=== PATIENT | male | born 1960 | race Caucasian/White ===

== ENCOUNTER → 2016-10-17 | Outpatient (CLI) | payer BC | END | disposition home or self-care (01) | LOC: RAD.S 17:00 | DX: M79.89 Other specified soft tissue disorders (principal); I82.491 Acute embolism and thrombosis of other specified deep vein of right lower extremity ==

== ENCOUNTER 2016-11-09 21:57 | Emergency (ER) | payer BC ==
--- NOTE | 2016-11-19 08:39 | ER ---
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 See T-sheet for history and physical. Wound was thoroughly cleaned and stapled with #5 mayra and subsequently discharged. Instructed to remove the staple in approximately 10 days. He was also given Keflex prophylactically at the stockyard when this happened. DIAGNOSIS: Laceration repair. Walter Burgess MD/ anthony JOB #: [id number] CC: Dave Fraga MD, Attending Physician Severo Gage MD, Family Physician
== END 2016-11-09 22:20 | disposition home or self-care (01) ==
LOC: ER 21:57
PROC: 0HQ0XZZ Repair Scalp Skin, External Approach (ICD-10-PCS; principal; 2016-11-09)
DX: S01.01XA Laceration without foreign body of scalp, initial encounter (principal); W01.198A Fall on same level from slipping, tripping and stumbling with subsequent striking against other object, initial encounter